=== PATIENT | female | born 1980 | race African-American/Black ===

== ENCOUNTER 2016-10-30 18:46 | Emergency (ER) | payer SELFPAY ==
[2016-10-30 18:54] VITALS: BP 143/83
[2016-10-30] MEDS ORDERED: PSEUDOEPHEDRINE HCL 30 MG TABLET PO ONE (19:31)
[2016-10-30] MEDS ORDERED: IBUPROFEN 800 MG TABLET PO ONE (19:31)
[2016-10-30] MEDS ORDERED: GUAIFENESIN 600 MG TABLET.SA PO ONE (19:31)
--- NOTE | 2016-10-30 19:37 | ER Document Report ---
HPI - HPI Patient complains to provider of: sinus congestion Pain Level: 3 Context: patient is a 35 year old female who presents to the ED complaining of sinus congestion, left facial pain and ear pain, with body aches. She has been taking benadryl and motrin at home. She denies influenza vaccine this year. denies fevers, admits to intermittent chills. has not followed up with primary care regarding this complaint. nonsmoker - REPRODUCTIVE Reproductive: DENIES: : - DERM Skin Color: Normal Past Medical History - Social History Smoking Status: Never Smoker Family History: Reviewed & Not Pertinent, CAD Patient has suicidal ideation: No Patient has homicidal ideation: No Pulmonary Medical History: Reports: Hx Asthma - A CHILD Renal/ Medical History: Denies: Hx Peritoneal Dialysis Past Surgical History: Reports: Hx Gynecologic Surgery - Ovarian cyst removal - Immunizations Hx Diphtheria, Pertussis, Tetanus Vaccination: Yes Vertical Provider Document - CONSTITUTIONAL Agree With Documented VS: Yes Exam Limitations: No Limitations General Appearance: WD/WN, No Apparent Distress Notes: PHYSICAL EXAM GENERAL: Alert, interacts well. HEAD: Normocephalic, atraumatic. EYES: Pupils equal, round, and reactive to light. Extraocular movements intact. ENT: Oral mucosa moist, tongue midline. Uvula midline. Airway patent. No evidence of tonsillar enlargement, peritonsillar abscess, retropharyngeal abscess. NECK: Full range of motion. Supple. Trachea midline. LUNGS: Clear to auscultation bilaterally, no wheezes, rales, or rhonchi. No respiratory distress. HEART: Regular rate and rhythm. No murmurs, gallops, or rubs. ABDOMEN: Soft, nondistended, nontender. No guarding, rebound, or rigidity.. Bowel sounds present in all 4 quadrants. EXTREMITIES: Moves all 4 extremities spontaneously. No edema, radial and dorsalis pedis pulses 2/4 bilaterally. No cyanosis. NEUROLOGICAL: Alert and oriented x4. Normal speech. PSYCH: Normal affect, normal mood. SKIN: Warm, dry, normal turgor. No rashes or lesions noted. - INFECTION CONTROL TRAVEL OUTSIDE OF THE [place] IN LAST 30 DAYS: No - RESPIRATORY O2 Sat by Pulse Oximetry: 100 Course - Re-evaluation Re-evalutation: 10/30/16 19:51 Patient is a 35-year-old female who is hemodynamically stable, no acute distress and afebrile. Does not meet treatment criteria for sinus infection given that she only has 4 days of symptoms without any evidence of purulent drainage or facial pain to palpation, afebrile. Discussed with her over-the- counter management of her symptoms and follow-up with primary care. - Vital Signs Vital signs: Temp Pulse Resp BP Pulse Ox 98.4 F 71 18 143/83 H 100 10/30/16 18:50 10/30/16 18:50 10/30/16 18:50 10/30/16 18:50 10/30/16 18:50 Discharge - Discharge Clinical Impression: Rhinitis Condition: Good Disposition: HOME, SELF-CARE Instructions: Nasal Corticosteroid Inhaler ([facility]), OTC Antihistamines ([facility]) Additional Instructions: Use the Neti-pot as instructed [id number] medicatiosn to use: Flonase nasal spray, mucinex DM (this will include the decongestant medication pseuodophedrine) Referrals: [facility] [NO LOCAL MD] - Follow up as needed YANELIS MONROY MD [NO LOCAL MD] - Follow up as needed
== END 2016-10-30 19:52 | disposition home or self-care (01) ==
LOC: ER 18:46
DX: J31.0 Chronic rhinitis (principal); R51 Headache; M79.1 Myalgia
CPT/HCPCS: 99283

== ENCOUNTER 2018-01-12 22:09 | Emergency (ER) | payer SELFPAY ==
[2018-01-12] MEDS ORDERED: ACETAMINOPHEN 325 MG TABLET PO ONE (23:17)
[2018-01-12] MEDS ORDERED: ONDANSETRON 4 MG TAB.RAPDIS PO ONE (23:18)
--- NOTE | 2018-01-12 23:20 | ER Document Report ---
ED Medical Screen (RME) - General Chief Complaint: Headache Stated Complaint: BLOOD PRESSURE ISSUES Time Seen by Provider: 01/12/18 23:17 Mode of Arrival: Ambulatory Information source: Patient Notes: Patient presents complaining of right-sided headache pain that started yesterday. Patient states headache pain is been off and on though has persisted today. Patient states that she has felt lightheaded since around 7 PM today. Patient states she did check her blood pressure and it was elevated. Patient denies any history of high blood pressure. Patient denies any fever, vomiting or head injury. Patient does complain of nausea. I have greeted and performed a rapid initial assessment of this patient. A comprehensive ED assessment and evaluation of the patient, analysis of test results and completion of the medical decision making process will be conducted by additional ED providers. TRAVEL OUTSIDE OF THE [place] IN LAST 30 DAYS: No - Related Data Allergies/Adverse Reactions: No Known Allergies Allergy (Verified 07/15/16 18:37) Past Medical History Pulmonary Medical History: Reports: Hx Asthma - A CHILD Renal/ Medical History: Denies: Hx Peritoneal Dialysis Past Surgical History: Reports: Hx Gynecologic Surgery - Ovarian cyst removal - Immunizations Hx Diphtheria, Pertussis, Tetanus Vaccination: Yes Physical Exam - Vital signs Vitals: Temp Pulse Resp BP Pulse Ox 98.0 F 52 L 20 160/96 H 99 01/12/18 22:15 01/12/18 22:15 01/12/18 22:15 01/12/18 22:15 01/12/18 22:15 - Neurological Neuro grossly intact: Yes Cognition: Normal Reena Coma Scale Eye Opening: Spontaneous [place] Coma Scale Verbal: Oriented [place] Coma Scale Motor: Obeys Commands Reena Coma Scale Total: 15 Course - Vital Signs Vital signs: Temp Pulse Resp BP Pulse Ox 98.0 F 52 L 20 160/96 H 99 01/12/18 22:15 01/12/18 22:15 01/12/18 22:15 01/12/18 22:15 01/12/18 22:15
[2018-01-13] MEDS ORDERED: NORMAL SALINE 1000 ML 1,000 ML IV ONE (00:24)
[2018-01-13] MEDS ORDERED: METOCLOPRAMIDE HCL INJ/PF 10 MG/2 ML SDV IV ONE (00:25)
[2018-01-13] MEDS ORDERED: DIPHENHYDRAMINE HCL 50 MG/ML VIAL IV ONE (00:25)
[2018-01-13] MEDS ORDERED: DEXAMETHASONE SOD PHOS INJ 10 MG/1 ML VIAL IV ONE (00:25)
--- NOTE | 2018-01-13 00:28 | ER Document Report ---
ED General - General Chief Complaint: Headache Stated Complaint: BLOOD PRESSURE ISSUES Time Seen by Provider: 01/12/18 23:17 Mode of Arrival: Ambulatory Notes: Patient is a 37-year-old female presents with complaint of a headache since yesterday. She says is some intermittent sharp pain it is worse in the right side but also occurs on left side of her head. She says it comes very quickly and last 1 or 2 seconds and goes away. She said along with these intermittent sharp pain she also has a constant dull headache over the top of her head. She did have a little pain to the left side of her neck that just started in the last few hours. No fevers. Some nausea. No vomiting. No diarrhea. She denies previous history of headaches. No blurred vision. No focal weakness or numbness. No recent injuries. She does not take any medications and is otherwise healthy. TRAVEL OUTSIDE OF THE [place] IN LAST 30 DAYS: No - Related Data Allergies/Adverse Reactions: No Known Allergies Allergy (Verified 07/15/16 18:37) Past Medical History - General Information source: Patient - Social History Smoking Status: Never Smoker Frequency of alcohol use: None Drug Abuse: None Family History: Reviewed & Not Pertinent, CAD Pulmonary Medical History: Reports: Hx Asthma - A CHILD Renal/ Medical History: Denies: Hx Peritoneal Dialysis Past Surgical History: Reports: Hx Gynecologic Surgery - Ovarian cyst removal - Immunizations Hx Diphtheria, Pertussis, Tetanus Vaccination: Yes Review of Systems - Review of Systems Notes: My Normal Review Basic REVIEW OF SYSTEMS: CONSTITUTIONAL : Denies fever, chills, or sweats. Denies recent illness. GASTROINTESTINAL: Denies abdominal pain. Denies nausea, vomiting, or diarrhea. GENITOURINARY: Denies difficulty urinating, painful urination, burning, frequency, or blood in urine. SKIN: Denies rash or skin lesions. NEUROLOGICAL: Denies altered mental status or loss of consciousness. Has a headache. Denies weakness or paralysis or loss of use of either side. Denies problems with gait or speech. Denies sensory or motor loss. ALL OTHER SYSTEMS REVIEWED AND NEGATIVE. Physical Exam - Vital signs Vitals: Temp Pulse Resp BP Pulse Ox 98.0 F 52 L 20 160/96 H 99 01/12/18 22:15 01/12/18 22:15 01/12/18 22:15 01/12/18 22:15 01/12/18 22:15 - Notes Notes: General Appearance: Well nourished, alert, cooperative, no acute distress, mild obvious discomfort. Vitals: reviewed, See vital signs table. Head: no swelling or tenderness to the head Eyes: PERRL, EOMI, Conjuctiva clear Mouth: No decreasd moisture Neck: Supple, no neck tenderness, No thyromegaly Lungs: No wheezing, No rales, No rhonci, No accessory muscle use, good air exchange bilaterally. Heart: Normal rate, Regular rythm, No murmur, no rub Extremities: strength 5/5 in all extremities, good pulses in all extremities, no swelling or tenderness in the extremities, no edema. Skin: warm, dry, appropriate color, no rash Neuro: speech clear, oriented x 3, normal affect, responds appropriately to questions. Cranial nerves II through XII are intact. Distal sensation intact patient moves all extremities without any difficulty. Normal coordination of movement of extremities. Course - Re-evaluation Re-evalutation: 01/14/18 06:50 Patient's headache resolved on its own before she received the medications. Patient does not have any pain to palpation of her temporal arteries. She denies any blurred vision. I did talk to her about the possibility of subarachnoid hemorrhage. I think this is less likely being that the headache is very sharp and quick and intermittent however the patient does not typically have headaches and therefore I talked to patient workup for subarachnoid hemorrhage. I talked her length about the difference between CTA and lumbar puncture. I informed her CT is sensitive but it is not 100% sensitive in ruling out a cerebral aneurysm. I informed her that lumbar puncture is closest to 100% ruling out a cerebral aneurysm bleed. Did review the procedure lumbar puncture with the patient she does not want a lumbar puncture and says she would rather do a CTA and understands that this is not sensitive. CT was negative. Patient's pain resolved without any medications. Her blood pressure is improving since her pain is gone. Informed her that she keep a close eye on her blood pressure and keep a log of her blood pressures for next week. She does not follow up with primary care doctor for reevaluation. I encouraged her return to ER immediately if she has recurrent worsening headaches, vomiting, fevers, or feels unwell. Patient agrees with plan will be discharged home. Dictation of this chart was performed using voice recognition software; therefore, there may be some unintended grammatical errors. - Vital Signs Vital signs: Temp Pulse Resp BP Pulse Ox 98.2 F 63 18 125/72 98 01/13/18 04:18 01/13/18 04:18 01/13/18 04:18 01/13/18 04:18 01/13/18 04:18 - Laboratory Result Diagrams: 01/13/18 00:50 01/13/18 00:50 Laboratory results interpreted by me: 01/13/18 00:50 Hgb 11.4 L Hct 34.4 L Discharge - Discharge Clinical Impression: Headache Qualifiers: Headache type: unspecified Headache chronicity pattern: episodic headache Intractability: not intractable Qualified Code(s): R51 - Headache Hypertension Qualifiers: Hypertension type: unspecified Qualified Code(s): I10 - Essential (primary) hypertension Condition: Good Disposition: HOME, SELF-CARE Instructions: Family Physicians / Practices Additional Instructions: Please check your blood pressure once a day for the next week and keep a log. please follow up with a primary care doctor with your log of blood pressures to see if you need to be started on a blood pressure medication and also get reevaluated for your headache. We did a special CT scan to look for evidence of any aneurysms in the brain. CT scan was negative for any aneurysms. As discussed with you, the CT scan is very sensitive in picking up aneurysms but is not 100% sensitive in ruling out aneurysm bleeds. The only test 100% sensitive would be a lumbar puncture. At this time you did not want a lumbar puncture and we do respect your decision. We still want you to have a low threshold to return to ER if you have recurrent headaches that are sudden in onset and very strong in onset, vomiting, fevers, or if you feel that you are worsening in any way. Please take the Reglan with 25 mg of Benadryl if you have a headache. This should help relieve your headache. Prescriptions: Metoclopramide HCl [Reglan 10 mg Tablet] 1 tab PO ASDIR PRN #25 tablet PRN Reason:
[2018-01-13 01:06] LABS: ABSOLUTE BASOPHILS # (AUTO) 0.1 10^3/uL (0.0-0.2); ABSOLUTE EOSINOPHILS # (AUTO) 0.1 10^3/uL (0.0-0.6); ABSOLUTE LYMPHOCYTES (AUTO) 2.1 10^3/uL (0.5-4.7); ABSOLUTE MONOCYTES (AUTO) 0.7 10^3/uL (0.1-1.4); EOSINOPHILS % (AUTO) 1.8 % (0-6); HEMATOCRIT 34.4 % (36.0-47.0); HEMOGLOBIN 11.4 g/dL (12.0-15.5); MEAN CORPUSCULAR HEMOGLOBIN 28.2 pg (27.0-33.4); MEAN CORPUSCULAR HGB CONC 33.2 g/dL (32.0-36.0); MEAN CORPUSCULAR VOLUME 85 fl (80-97); MONOCYTES % (AUTO) 11.4 % (3-13); PLATELET COUNT 164 10^3/uL (150-450); RED BLOOD COUNT 4.05 10^6/uL (3.72-5.28); RED CELL DISTRIBUTION WIDTH 13.2 % (11.5-14.0); SEGMENTED NEUTROPHILS % (AUTO) 50.8 % (42-78); TOTAL CELLS COUNTED % (AUTO) 100 %; WHITE BLOOD COUNT 5.9 10^3/uL (4.0-10.5)
[2018-01-13 01:19] LABS: ANION GAP 9 (5-19); BLOOD UREA NITROGEN 18 mg/dL (7-20); CALCIUM 8.6 mg/dL (8.4-10.2); CARBON DIOXIDE 27 mmol/L (22-30); CHLORIDE 107 mmol/L (98-107); GLUCOSE 101 mg/dL (75-110); POTASSIUM 4.1 mmol/L (3.6-5.0); SODIUM 142.8 mmol/L (137-145)
--- NOTE | 2018-01-13 03:02 | RADIOLOGY REPORT (SQ) ---
EXAM DESCRIPTION: CT HEAD ANGIOGRAPHY WITHOUT THEN WITH IV CONTRAST COMPLETED DATE/TME: 01/13/2018 00:24 CLINICAL HISTORY: 37 years, Female, headache COMPARISON: None available TECHNIQUE: Axial CTA images of the head obtained from the skull base to the skull apex before and after the the uncomplicated intravenous administration of 80 mL Omnipaque 350. 3-D/MIP reformatted images available. Contrast bolus timing is somewhat delayed with the dominant opacification within the venous system however the arterial system remains opacified. All CT scanners at this facility use dose modulation, iterative reconstruction, and/or weight based dosing when appropriate to reduce radiation dose to as low as reasonably achievable (ALARA). [facility]: Dose Right [facility]: CareDose [facility]: Dose Right [facility]: Teradose 4D [facility]: [employer] [facility]: 1164.47 mGy-cm FINDINGS: CT head without: No acute intracranial hemorrhage identified. No mass, mass effect, shift of the midline, abnormal extra-axial fluid collection or CT evidence of acute ischemic change identified. The ventricular system is unremarkable. No acute abnormalities of the supratentorial white matter, basal ganglia, cerebellum, or brainstem. Region of encephalomalacia involving the left cerebellum. The visualized paranasal sinuses and the mastoids are clear. No skull fracture identified. Prior left occipital craniotomy. Visualized orbits and globes are unremarkable. CTA: Anterior circulation: The intracranial internal carotid arteries have normal course and caliber. The internal carotid arteries bifurcate into widely patent A1 and M1 segments of the anterior and middle cerebral arteries, respectively. The anterior communicating artery is patent. No evidence of stenosis/occlusion in the middle or anterior cerebral arteries. No distal vascular territory pruning. No aneurysm identified. Posterior circulation: The intracranial vertebral arteries are patent. These vessels combined to produce a widely patent basilar artery. The basilar artery is widely patent and bifurcates into patent posterior cerebral arteries. The superior cerebellar arteries, AICA's, and PICA's are patent. IMPRESSION: 1. No acute intracranial abnormality identified. 2. No abnormality identified within the intracranial circulation. TECHNICAL DOCUMENTATION: Quality ID # [id number]: Final reports with documentation of one or more dose reduction techniques (e.g., Automated exposure control, adjustment of the mA and/or kV according to patient size, use of iterative reconstruction technique) 2010 [employer]- All Rights Reserved Electronically signed by: Yury Alvarado 01/13/2018 1:32 AM CDT Workstation:
[2018-01-13 04:32] VITALS: BP 125/72
== END 2018-01-13 04:32 | disposition home or self-care (01) ==
LOC: ER 22:09
DX: R51 Headache (principal); I10 Essential (primary) hypertension; R11.0 Nausea; J45.909 Unspecified asthma, uncomplicated
CPT/HCPCS: 36415; 70496; 80048; 84703; 85025; 99284

== ENCOUNTER 2018-09-08 18:02 | Emergency (ER) | payer SELFPAY ==
[2018-09-08 18:17] VITALS: BP 136/81
[2018-09-08] MEDS ORDERED: IBUPROFEN 800 MG TABLET PO ONE (18:32)
[2018-09-08] MEDS ORDERED: CEPHALEXIN 500 MG CAPSULE PO ONE (20:08)
--- NOTE | 2018-09-08 20:12 | ER Document Report ---
HPI - HPI Patient complains to provider of: Right great toe tenderness Time Seen by Provider: 09/08/18 19:36 Onset/Duration: Persistent Quality of pain: Achy Pain Level: 5 Context: Patient presents complaining of right great toe pain for the past 2 days. Patient states area is red and swollen. Associated Symptoms: denies: Fever Exacerbated by: Standing, Movement, Walking Relieved by: Denies Similar symptoms previously: No Recently seen / treated by doctor: No - ROS ROS below otherwise negative: Yes Systems Reviewed and Negative: Yes All other systems reviewed and negative - CONSTITUTIONAL Constitutional: DENIES: Fever, Chills - REPRODUCTIVE Reproductive: DENIES: : - MUSCULOSKELETAL Musculoskeletal: REPORTS: Extremity pain - l big toe, Swelling - DERM Skin Color: Erythema Past Medical History - General Information source: Patient - Social History Smoking Status: Never Smoker Chew tobacco use (# tins/day): No Frequency of alcohol use: None Drug Abuse: None Occupation: [employer] Lives with: Family Family History: Reviewed & Not Pertinent, CAD Patient has suicidal ideation: No Patient has homicidal ideation: No Pulmonary Medical History: Reports: Hx Asthma - A CHILD Renal/ Medical History: Denies: Hx Peritoneal Dialysis Past Surgical History: Reports: Hx Gynecologic Surgery - Ovarian cyst removal - Immunizations Hx Diphtheria, Pertussis, Tetanus Vaccination: Yes Vertical Provider Document - CONSTITUTIONAL Agree With Documented VS: Yes Exam Limitations: No Limitations General Appearance: WD/WN, No Apparent Distress - INFECTION CONTROL TRAVEL OUTSIDE OF THE [place] IN LAST 30 DAYS: No - HEENT HEENT: Atraumatic, Normocephalic - NECK Neck: Normal Inspection - RESPIRATORY Respiratory: Breath Sounds Normal, No Respiratory Distress - CARDIOVASCULAR Cardiovascular: Regular Rate, Regular Rhythm - MUSCULOSKELETAL/EXTREMETIES Musculoskeletal/Extremeties: MAEW, Tender - Tenderness to right great toe along the medial nail margin, Edema - Plus edema right great toe - NEURO Level of Consciousness: Awake, Alert, Appropriate Motor/Sensory: No Motor Deficit - DERM Integumentary: Warm, Dry Notes: Mild erythema to base and medial margin of right great toenail, patient with nail fungus to right great toe Course - Re-evaluation Re-evalutation: 09/08/18 20:09 Offered patient liver function tests and starting antifungal medication to treat her onychomycosis. Patient declined and only would like to have antibiotics to treat the infection to the toe - Vital Signs Vital signs: Temp Pulse Resp BP Pulse Ox 98.7 F 61 14 136/81 H 99 09/08/18 18:16 09/08/18 18:16 09/08/18 18:16 09/08/18 18:16 09/08/18 18:16 Discharge - Discharge Clinical Impression: Paronychia of toe of right foot Condition: Stable Disposition: HOME, SELF-CARE Instructions: Cephalexin ([facility]), Paronychia ([facility]) Additional Instructions: Return immediately for any new or worsening symptoms Followup with your primary care provider, call tomorrow to make a followup appointment Prescriptions: Cephalexin Monohydrate [Keflex 500 mg Capsule] 500 mg PO Q6H 5 Days capsule Naproxen [Naprosyn 250 Nmg Tablet] 1 tab PO BID #14 tablet Forms: Return to Work Referrals: [facility] [Provider Group] - Follow up as needed [facility] [Provider Group] - Follow up as needed
== END 2018-09-08 20:28 | disposition home or self-care (01) ==
LOC: ER 18:02
DX: L03.031 Cellulitis of right toe (principal); M79.674 Pain in right toe(s); J45.909 Unspecified asthma, uncomplicated
CPT/HCPCS: 99283

== ENCOUNTER 2019-05-28 15:01 | Emergency (ER) | payer OTHER ==
[2019-05-28] MEDS ORDERED: METHOCARBAMOL 500 MG TABLET PO ONE (15:17)
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
[2019-05-28 16:00] LABS: ABSOLUTE EOSINOPHILS # (AUTO) 0.1 10^3/uL (0.0-0.6); ABSOLUTE LYMPHOCYTES (AUTO) 1.8 10^3/uL (0.5-4.7); ABSOLUTE MONOCYTES (AUTO) 0.5 10^3/uL (0.1-1.4); BASOPHILS % (AUTO) 0.6 % (0-2); EOSINOPHILS % (AUTO) 0.8 % (0-6); HEMATOCRIT 38.1 % (36.0-47.0); HEMOGLOBIN 12.6 g/dL (12.0-15.5); MEAN CORPUSCULAR HEMOGLOBIN 28.1 pg (27.0-33.4); MEAN CORPUSCULAR VOLUME 85 fl (80-97); MONOCYTES % (AUTO) 7.8 % (3-13); PLATELET COUNT 195 10^3/uL (150-450); RED BLOOD COUNT 4.47 10^6/uL (3.72-5.28); RED CELL DISTRIBUTION WIDTH 13.3 % (11.5-14.0); SEGMENTED NEUTROPHILS % (AUTO) 62.8 % (42-78); TOTAL CELLS COUNTED % (AUTO) 100 %; WHITE BLOOD COUNT 6.3 10^3/uL (4.0-10.5)
[2019-05-28 16:18] LABS: ANION GAP 9 (5-19); BLOOD UREA NITROGEN 10 mg/dL (7-20); CALCIUM 9.2 mg/dL (8.4-10.2); CARBON DIOXIDE 29 mmol/L (22-30); CHLORIDE 102 mmol/L (98-107); GLUCOSE 83 mg/dL (75-110); POTASSIUM 3.9 mmol/L (3.6-5.0)
[2019-05-28 16:56] LABS: APPEARANCE,URINE SLIGHTLY-CLOUDY; BILIRUBIN,URINE NEGATIVE (NEGATIVE); COLOR,URINE YELLOW; GLUCOSE, URINE NEGATIVE (NEGATIVE); KETONES,URINE NEGATIVE (NEGATIVE); PROTEIN,URINE NEGATIVE (NEGATIVE); URINE SPECIFIC GRAVITY 1.021
[2019-05-28 19:25] VITALS: BP 142/84
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
== END 2019-05-28 19:26 | disposition home or self-care (01) ==
LOC: ER 15:01
DX: S39.012A Strain of muscle, fascia and tendon of lower back, initial encounter (principal); S29.012A Strain of muscle and tendon of back wall of thorax, initial encounter; V49.50XA Passenger injured in collision with unspecified motor vehicles in traffic accident, initial encounter
CPT/HCPCS: 36415; 80048; 81001; 84703; 85025; 87086; 87088; 99283

== ENCOUNTER 2020-04-02 16:59 | Emergency (ER) | payer OTHER ==
[2020-04-02] MEDS ORDERED: ACETAMINOPHEN 325 MG TABLET PO ONE (17:34)
--- NOTE | 2020-04-02 17:36 | ER Document Report ---
ED Medical Screen (RME) - General Chief Complaint: OB Problem (>20wk) Stated Complaint: VAGINAL BLEEDING Time Seen by Provider: 04/02/20 17:29 Notes: Patient is a 39-year-old female, G7, P4 who presents emergency department with a chief complaint of vaginal bleeding. Patient states that she started to have some abdominal cramping. Patient states that she is about 9 weeks . States that she had blood on the toilet paper when she wiped. Denies any clots. Exam: Tender mid lower abdomen. I have greeted and performed a rapid initial assessment of this patient. A comprehensive ED assessment and evaluation of the patient, analysis of test results and completion of medical decision making process will be conducted by an additional ED providers. TRAVEL OUTSIDE OF THE [place] IN LAST 30 DAYS: No - Related Data Allergies/Adverse Reactions: No Known Allergies Allergy (Verified 04/02/20 17:32) Home Medications: tylenol. Past Medical History - Social History Chew tobacco use (# tins/day): No Frequency of alcohol use: None Drug Abuse: None Pulmonary Medical History: Reports: Hx Asthma - A CHILD Renal/ Medical History: Denies: Hx Peritoneal Dialysis Past Surgical History: Reports: Hx Gynecologic Surgery - Ovarian cyst removal - Immunizations Hx Diphtheria, Pertussis, Tetanus Vaccination: Yes Physical Exam - Vital signs Vitals: Temp Pulse Resp BP Pulse Ox 98.5 F 63 16 137/68 H 100 04/02/20 17:12 04/02/20 17:12 04/02/20 17:12 04/02/20 17:12 04/02/20 17:12 Course - Vital Signs Vital signs: Temp Pulse Resp BP Pulse Ox 98.5 F 63 16 137/68 H 100 04/02/20 17:30 04/02/20 17:12 04/02/20 17:12 04/02/20 17:12 04/02/20 17:12
[2020-04-02 18:14] LABS: ABSOLUTE BASOPHILS # (AUTO) 0.1 10^3/uL (0.0-0.2); ABSOLUTE EOSINOPHILS # (AUTO) 0.1 10^3/uL (0.0-0.6); ABSOLUTE LYMPHOCYTES (AUTO) 1.9 10^3/uL (0.5-4.7); ABSOLUTE MONOCYTES (AUTO) 0.8 10^3/uL (0.1-1.4); ABSOLUTE NEUT (AUTO) 4.5 10^3/uL (1.7-8.2); BASOPHILS % (AUTO) 0.7 % (0-2); EOSINOPHILS % (AUTO) 1.4 % (0-6); HEMATOCRIT 33.1 % (36.0-47.0); HEMOGLOBIN 11.5 g/dL (12.0-15.5); MEAN CORPUSCULAR HEMOGLOBIN 29.2 pg (27.0-33.4); MEAN CORPUSCULAR HGB CONC 34.9 g/dL (32.0-36.0); MEAN CORPUSCULAR VOLUME 84 fl (80-97); MONOCYTES % (AUTO) 10.3 % (3-13); PLATELET COUNT 168 10^3/uL (150-450); RED BLOOD COUNT 3.96 10^6/uL (3.72-5.28); RED CELL DISTRIBUTION WIDTH 13.8 % (11.5-14.0); SEGMENTED NEUTROPHILS % (AUTO) 61.6 % (42-78); TOTAL CELLS COUNTED % (AUTO) 100 %; WHITE BLOOD COUNT 7.3 10^3/uL (4.0-10.5)
[2020-04-02 18:24] LABS: ALKALINE PHOSPHATASE 52 U/L (38-126); ANION GAP 7 (5-19); ASPARTATE AMINO TRANSFERASE 28 U/L (14-36); BILIRUBIN,DIRECT 0.3 mg/dL (0.0-0.4); BILIRUBIN,TOTAL 0.4 mg/dL (0.2-1.3); BLOOD UREA NITROGEN 8 mg/dL (7-20); CALCIUM 9.3 mg/dL (8.4-10.2); CARBON DIOXIDE 28 mmol/L (22-30); CHLORIDE 102 mmol/L (98-107); GLUCOSE 82 mg/dL (75-110); POTASSIUM 3.9 mmol/L (3.6-5.0)
--- NOTE | 2020-04-02 18:57 | RADIOLOGY REPORT (SQ) ---
EXAM DESCRIPTION: U/S 1TRIMESTER/1GEST W/DOPPLER IMAGES COMPLETED DATE/TIME: 04/02/2020 6:38 pm REASON FOR STUDY: 9 weeks; vaginal bleeding COMPARISON: None. TECHNIQUE: Transabdominal static and realtime grayscale images acquired of the pelvis. Additional se lected spectral and color Doppler images recorded. All images stored on PACs. bHCG: Pending. CLINICAL DATES: LMP 01/25/2020 9 weeks 5 days LIMITATIONS: None. FINDINGS: FETUS: Single Living intrauterine . ULTRASOUND EGA: 5 weeks 6 days ULTRASOUND GREG: 12/02/2020 EFW: Not applicable less than 20 weeks. CRL: 0.3 cm FHR: 116 beats per minute. SURVEY: Too early to assess. AMNIOTIC FLUID: Adequate amount. PLACENTA: Not yet developed due to early gestation. SUBCHORIONIC BLEED: No SIZE OF BLEED: Not applicable. UTERUS: No masses. No anomalies. CERVICAL LENGTH: 1.8 cm. Closed. RIGHT ADNEXA: Normal ovary with normal vascular flow. No adnexal free fluid. No adnexal masses. LEFT ADNEXA: Normal ovary with normal vascular flow. No adnexal free fluid. No adnexal masses. FREE FLUID: None. OTHER: No other significant finding. IMPRESSION: LIVING INTRAUTERINE . EGA 5 weeks 6 days. Trimester of : First trimester - 0 to 13 weeks. TECHNICAL DOCUMENTATION: JOB ID: [id number] 2010 [employer]- All Rights Reserved rev-12/03 Reading location - IP/workstation name: [email or web address]
[2020-04-02 19:32] LABS: APPEARANCE,URINE CLEAR; BILIRUBIN,URINE NEGATIVE (NEGATIVE); COLOR,URINE YELLOW; GLUCOSE, URINE NEGATIVE (NEGATIVE); KETONES,URINE NEGATIVE (NEGATIVE); LEUKOCYTE ESTERASE,URINE NEGATIVE (NEGATIVE); NITRITE,URINE NEGATIVE (NEGATIVE); PROTEIN,URINE NEGATIVE (NEGATIVE); URINE SPECIFIC GRAVITY 1.012; UROBILINOGEN,URINE NEGATIVE mg/dL (<2.0)
--- NOTE | 2020-04-02 21:23 | ER Document Report ---
ED GI/ - General Chief Complaint: OB Problem (>20wk) Stated Complaint: VAGINAL BLEEDING Time Seen by Provider: 04/02/20 17:29 Primary Care Provider: [facility] [Provider Group] - Follow up as needed Mode of Arrival: Ambulatory Information source: Patient Notes: VLADIMIR HPI: Patient is a 39-year-old female, G7, P4 who presents emergency department with a chief complaint of vaginal bleeding. Patient states that she started to have some abdominal cramping. Patient states that she is about 9 weeks . States that she had blood on the toilet paper when she wiped. Denies any clots. Patient denies any recent fever, chills, nausea, vomiting or diarrhea. TRAVEL OUTSIDE OF THE [place] IN LAST 30 DAYS: No - Related Data Allergies/Adverse Reactions: No Known Allergies Allergy (Verified 04/02/20 17:32) Home Medications: tylenol. Past Medical History - General Information source: Patient - Social History Smoking Status: Never Smoker Chew tobacco use (# tins/day): No Frequency of alcohol use: None Drug Abuse: None Family History: Reviewed & Not Pertinent, CAD Patient has homicidal ideation: No Pulmonary Medical History: Reports: Hx Asthma - A CHILD Renal/ Medical History: Denies: Hx Peritoneal Dialysis Past Surgical History: Reports: Hx Gynecologic Surgery - Ovarian cyst removal - Immunizations Hx Diphtheria, Pertussis, Tetanus Vaccination: Yes Review of Systems - Review of Systems Gastrointestinal: Abdominal pain - low abd cramping Female Genitourinary: Vaginal bleeding - spotting on toilet paper -: Yes All other systems reviewed and negative Physical Exam - Vital signs Vitals: Temp Pulse Resp BP Pulse Ox 98.5 F 63 16 137/68 H 100 04/02/20 17:12 04/02/20 17:12 04/02/20 17:12 04/02/20 17:12 04/02/20 17:12 - Notes Notes: PHYSICAL EXAMINATION: GENERAL: Well-appearing, well-nourished and in no acute distress. HEAD: Atraumatic, normocephalic. EYES: Pupils equal round and reactive to light, extraocular movements intact, conjunctiva are normal. ENT: Nares patent, oropharynx clear without exudates. Moist mucous membranes. NECK: Normal range of motion, supple without lymphadenopathy LUNGS: Breath sounds clear to auscultation bilaterally and equal. No wheezes rales or rhonchi. HEART: Regular rate and rhythm without murmurs ABDOMEN: Soft, mild tenderness to the lower abdomen/suprapubic area, nondistended abdomen. No guarding, no rebound. No masses appreciated. Female : deferred Musculoskeletal: Normal range of motion, no pitting or edema. No cyanosis. NEUROLOGICAL: Cranial nerves grossly intact. Normal speech, normal gait. Normal sensory, motor exams PSYCH: Normal mood, normal affect. SKIN: Warm, Dry, normal turgor, no rashes or lesions noted. Course - Re-evaluation Re-evalutation: Laboratory 04/02/20 04/02/20 04/02/20 17:53 17:53 17:53 WBC 7.3 RBC 3.96 Hgb 11.5 L Hct 33.1 L MCV 84 MCH 29.2 MCHC 34.9 RDW 13.8 Plt Count 168 Lymph % (Auto) 26.0 [place] % (Auto) 10.3 Eos % (Auto) 1.4 Baso % (Auto) 0.7 Absolute Neuts (auto) 4.5 Absolute Lymphs (auto) 1.9 Absolute Monos (auto) 0.8 Absolute Eos (auto) 0.1 Absolute Basos (auto) 0.1 Seg Neutrophils % 61.6 Sodium 136.7 L Potassium 3.9 Chloride 102 Carbon Dioxide 28 Anion Gap 7 BUN 8 Creatinine 0.85 Est GFR ( Amer) > 60 Est GFR (MDRD) Non-Af > 60 Glucose 82 Calcium 9.3 Total Bilirubin 0.4 Direct Bilirubin 0.3 Neonat Total Bilirubin Not Reportable Neonat Direct Bilirubin Not Reportable Neonat Indirect Bili Not Reportable AST 28 ALT 25 Alkaline Phosphatase 52 Total Protein 7.0 Albumin 4.0 Lipase 25.4 Beta HCG, Quant 93006.00 H Total Beta HCG POSITIVE Urine Color Urine Appearance Urine pH Ur Specific [place] Urine Protein Urine Glucose (UA) Urine Ketones Urine Blood Urine Nitrite Urine Bilirubin Urine Urobilinogen Ur Leukocyte Esterase Urine WBC (Auto) Urine RBC (Auto) Squamous Epi Cells Auto Urine Mucus (Auto) Urine Ascorbic Acid Blood Type B POSITIVE Rhogam Indicated RHOGAM NOT INDICATED 04/02/20 19:00 WBC RBC Hgb Hct MCV MCH MCHC RDW Plt Count Lymph % (Auto) [place] % (Auto) Eos % (Auto) Baso % (Auto) Absolute Neuts (auto) Absolute Lymphs (auto) Absolute Monos (auto) Absolute Eos (auto) Absolute Basos (auto) Seg Neutrophils % Sodium Potassium Chloride Carbon Dioxide Anion Gap BUN Creatinine Est GFR ( Amer) Est GFR (MDRD) Non-Af Glucose Calcium Total Bilirubin Direct Bilirubin Neonat Total Bilirubin Neonat Direct Bilirubin Neonat Indirect Bili AST ALT Alkaline Phosphatase Total Protein Albumin Lipase Beta HCG, Quant Total Beta HCG Urine Color YELLOW Urine Appearance CLEAR Urine pH 6.0 Ur Specific [place] 1.012 Urine Protein NEGATIVE Urine Glucose (UA) NEGATIVE Urine Ketones NEGATIVE Urine Blood NEGATIVE Urine Nitrite NEGATIVE Urine Bilirubin NEGATIVE Urine Urobilinogen NEGATIVE Ur Leukocyte Esterase NEGATIVE Urine WBC (Auto) 0 Urine RBC (Auto) 0 Squamous Epi Cells Auto 1 Urine Mucus (Auto) RARE Urine Ascorbic Acid NEGATIVE Blood Type Rhogam Indicated Obstetrics Ultrasound 04/02/20 18:09 IMPRESSION: LIVING INTRAUTERINE . EGA 5 weeks 6 days. Trimester of : First trimester - 0 to 13 weeks. Patient appears well, nontoxic, denies any current vaginal bleeding. She reports that she had one episode earlier today where she had light blood on the toilet paper. Ultrasound findings as outlined above. Patient has a scheduled ultrasound with [facility] coming up on Wednesday which is 6 days from now. ED return precautions were discussed, patient verbalized understanding and agreement with same. - Vital Signs Vital signs: Temp Pulse Resp BP Pulse Ox 97.9 F 70 16 148/79 H 100 04/02/20 21:33 04/02/20 21:33 04/02/20 21:33 04/02/20 21:33 04/02/20 21:33 - Laboratory Result Diagrams: 04/02/20 17:53 04/02/20 17:53 Laboratory results interpreted by me: 04/02/20 04/02/20 17:53 17:53 Hgb 11.5 L Hct 33.1 L Sodium 136.7 L Beta HCG, Quant 93461.00 H Discharge - Discharge Clinical Impression: Vaginal bleeding affecting early Condition: Stable Disposition: HOME, SELF-CARE Additional Instructions: The ultrasound today showed no acute abnormalities. Your blood work was normal. Please keep the appointment you have for Wednesday at [facility] for your ultrasound. Bring the copy of the ultrasound that I sent you home with. Please return to the emergency department if you develop worsening vaginal bleeding that is bleeding through more than 1 pad per hour for 3 to 4 hours consecutively. Your blood type is B+ Referrals: [facility] [Provider Group] - Follow up as needed
[2020-04-02 21:36] VITALS: BP 148/79
== END 2020-04-02 21:36 | disposition home or self-care (01) ==
LOC: ER 16:59
DX: O20.9 Hemorrhage in early pregnancy, unspecified (principal); O26.899 Other specified pregnancy related conditions, unspecified trimester; R10.30 Lower abdominal pain, unspecified; R10.819 Abdominal tenderness, unspecified site; Z3A.00 Weeks of gestation of pregnancy not specified; Z79.899 Other long term (current) drug therapy
CPT/HCPCS: 36415; 76801; 80053; 81001; 83690; 84702; 85025; 86900; 86901; 93976; 99285

== ENCOUNTER → 2020-06-12 | Outpatient (CLI) | payer OTHER, MEDICAID ==
--- NOTE | 2020-06-12 13:03 | RADIOLOGY REPORT (SQ) ---
EXAM DESCRIPTION: VENOUS UNILATERAL LOWER IMAGES COMPLETED DATE/TIME: 06/12/2020 12:53 pm REASON FOR STUDY: RLE PAIN M79.604 PAIN IN RIGHT LEG COMPARISON: None. TECHNIQUE: Dynamic and static goodwin scale and color images acquired of the right leg venous system. S elected spectral images acquired with additional compression and augmentation maneuvers. The contrala teral common femoral vein and saphenofemoral junction were also imaged. Images stored on PACS. LIMITATIONS: None. FINDINGS: COMMON FEMORAL: Normal phasicity, compression and augmentation. No visualized echogenic ma terial on goodwin scale. No defects on color images. FEMORAL: Normal compression and augmentation. No visualized echogenic material on goodwin scale. No defe cts on color images. POPLITEAL: Normal compression, augmentation. No visualized echogenic material on goodwin scale. No defec ts on color images. CALF VESSELS: Normal compression, augmentation. No visualized echogenic material on goodwin scale. No de fects on color images. GSV and SSV: Normal compression, augmentation. No visualized echogenic material on goodwin scale. No def ects on color images. ANY DEEP VENOUS INSUFFICIENCY: Not evaluated. ANY EVIDENCE OF POPLITEAL CYST: 2.6 x 1.0 x 2.0 cm collection within the popliteal fossa most compati ble with popliteal fossa cyst. OTHER: No other significant finding. CONTRALATERAL COMMON FEMORAL VEIN AND SAPHENOFEMORAL JUNCTION: Normal phasicity, compression and augmentation. No visualized echogenic material on goodwin scale. No de fects on color images. IMPRESSION: NO EVIDENCE OF DVT OR SVT IN THE RIGHT LEG. 2.6 X 1.0 X 2.0 CM POPLITEAL FOSSA CYST. TECHNICAL DOCUMENTATION: JOB ID: [id number] 2010 [employer]- All Rights Reserved Reading location - IP/workstation name: [email or web address]
== END ==
LOC: SP 10:31
PROVIDERS: ATTEND Obstetrics & Gynecology
DX: M79.604 Pain in right leg (principal)
CPT/HCPCS: 93971

== ENCOUNTER 2020-08-02 15:24 | Outpatient (CLI) | payer OTHER, MEDICAID ==
[2020-08-02] MEDS ORDERED: BUTALB/ACETAMINOPHEN/CAFFEINE 1 TAB EACH PO ONE (16:02)
[2020-08-02] MEDS ORDERED: BUTALB/ACETAMINOPHEN/CAFFEINE 1 TAB EACH ONE (16:05)
[2020-08-02] MEDS ORDERED: RINGERS SOLUTION,LACTATED 1,000 ML IV PRN (16:22)
[2020-08-02 16:24] LABS: APPEARANCE,URINE SLIGHTLY-CLOUDY; BILIRUBIN,URINE NEGATIVE (NEGATIVE); COLOR,URINE YELLOW; GLUCOSE, URINE NEGATIVE (NEGATIVE); KETONES,URINE NEGATIVE (NEGATIVE); LEUKOCYTE ESTERASE,URINE NEGATIVE (NEGATIVE); NITRITE,URINE NEGATIVE (NEGATIVE); PROTEIN,URINE 30 mg/dL (NEGATIVE); URINE SPECIFIC GRAVITY 1.028
[2020-08-02] MEDS ORDERED: LABETALOL HCL INJ 20 MG/4 ML DISP.SYRIN IV ONE ×5 (16:24→17:14)
--- NOTE | 2020-08-02 16:41 | PDOC PROGRESS REPORT ---
Subjective Date:: 08/02/20 - at 23.2 weeks, sent over from the office w/ complaints of a headache. Hx CHTN, pt did not take her 2pm dose of Propanalol prior to going to [facility] appointment. Hx of marginal placental previa this noted on anatomy u/s. +GBS in urine Subjective:: headache Reason For Visit: Pre-eclampsia work up Physical Exam - Physical Exam Vital Signs: Intake & Output 08/01/20 08/02/20 08/03/20 06:59 06:59 06:59 Weight 94.4 kg - Obstetrical Exam Tender: No - abdoman soft, +FM, Assessment & Plan - Diagnosis (1) 23 weeks gestation of Is this a current diagnosis for this admission?: Yes (2) Chronic hypertension during , antepartum Is this a current diagnosis for this admission?: Yes (3) Marginal placenta previa Is this a current diagnosis for this admission?: Yes - Time Time Spent with patient: Less than 15 minutes Anticipated discharge: Home Anticipated DC Timeframe: Other - this evening - Plan Summary Plan Summary: Discussed pt w/ Dr Álvarez PLan: Pre-eclampsia labwork IV labetalol 20 mg IV for elevated BP per protocal Propanalol 20 mg PO as scheduled Fioricet for headache If BP improves and headache resolves, will most likely d/c home and follow up as scheduled at [facility]. Consider starting pt on Procardia XL
[2020-08-02 16:43] LABS: URINE PROTEIN 7.2 mg/dL (<12)
[2020-08-02 16:45] LABS: URINE AMPHETAMINES SCREEN NEGATIVE; URINE BENZODIAZEPINES SCREEN NEGATIVE; URINE COCAINE SCREEN NEGATIVE; URINE MARIJUANA (THC) SCREEN NEGATIVE; URINE METHADONE SCREEN NEGATIVE; URINE PHENCYCLIDINE SCREEN NEGATIVE
[2020-08-02 16:49] LABS: URINE BARBITURATES SCREEN UNCONFIRMED POSITIVE
[2020-08-02 16:55] LABS: URINE CREATININE 355.9 mg/dL (15-278)
[2020-08-02] MEDS ORDERED: PROPRANOLOL HCL 20 MG TABLET PO ONE (17:00)
[2020-08-02] MEDS ORDERED: PROMETHAZINE HCL INJ 25 MG/1 ML VIAL ONE (17:13)
[2020-08-02 17:20] LABS: ABSOLUTE EOSINOPHILS # (AUTO) 0.1 10^3/uL (0.0-0.6); ABSOLUTE LYMPHOCYTES (AUTO) 1.7 10^3/uL (0.5-4.7); ABSOLUTE MONOCYTES (AUTO) 0.9 10^3/uL (0.1-1.4); ABSOLUTE NEUT (AUTO) 5.9 10^3/uL (1.7-8.2); BASOPHILS % (AUTO) 0.3 % (0-2); EOSINOPHILS % (AUTO) 0.8 % (0-6); HEMATOCRIT 31.3 % (36.0-47.0); HEMOGLOBIN 10.8 g/dL (12.0-15.5); LYMPHOCYTES % (AUTO) 20.1 % (13-45); MEAN CORPUSCULAR HEMOGLOBIN 29.3 pg (27.0-33.4); MEAN CORPUSCULAR HGB CONC 34.5 g/dL (32.0-36.0); MEAN CORPUSCULAR VOLUME 85 fl (80-97); MONOCYTES % (AUTO) 10.7 % (3-13); PLATELET COUNT 145 10^3/uL (150-450); RED BLOOD COUNT 3.69 10^6/uL (3.72-5.28); RED CELL DISTRIBUTION WIDTH 13.8 % (11.5-14.0); SEGMENTED NEUTROPHILS % (AUTO) 68.1 % (42-78); TOTAL CELLS COUNTED % (AUTO) 100 %; WHITE BLOOD COUNT 8.7 10^3/uL (4.0-10.5)
[2020-08-02] MEDS ORDERED: PROMETHAZINE HCL INJ 25 MG/1 ML VIAL IV ONE (17:24)
[2020-08-02 17:37] LABS: ALKALINE PHOSPHATASE 82 U/L (38-126); ANION GAP 5 (5-19); ASPARTATE AMINO TRANSFERASE 30 U/L (14-36); BILIRUBIN,DIRECT 0.1 mg/dL (0.0-0.4); BILIRUBIN,TOTAL 0.4 mg/dL (0.2-1.3); BLOOD UREA NITROGEN 9 mg/dL (7-20); CALCIUM 8.5 mg/dL (8.4-10.2); CARBON DIOXIDE 24 mmol/L (22-30); CHLORIDE 107 mmol/L (98-107); GLUCOSE 81 mg/dL (75-110); POTASSIUM 4.1 mmol/L (3.6-5.0); URIC ACID 3.8 mg/dL (2.5-7.0)
[2020-08-02] MEDS ORDERED: NIFEDIPINE 10 MG CAPSULE ONE (18:04)
[2020-08-02] MEDS ORDERED: NIFEDIPINE 10 MG CAPSULE PO ONE (18:06)
--- NOTE | 2020-08-02 21:07 | RADIOLOGY REPORT (SQ) ---
INDICATION: severe SALVADOR x 2 days. COMPARISON: None CORRELATION: None TECHNIQUE: Noncontrast spiral axial CT images were obtained from the skull base to vertex. This exam was performed according to our departmental dose-optimization program, which includes automated exposure control, adjustment of the mA and/or kV according to patient size and/or use of iterative reconstruction techniques. FINDINGS: There is no evidence of acute intracranial hemorrhage, midline shift, mass effect or mass lesion. He-white differentiation is normal. There is no evidence of acute large territory infarct. Ventricles and extracerebral spaces are within normal limits, for age. The visualized paranasal sinuses are grossly clear. The orbits and eyeballs are unremarkable. The mastoid air cells are clear. Skull base and calvarium appear intact. IMPRESSION: No acute intracranial process is identified. The cause of the patient's headache is not identified on this examination.
[2020-08-02] MEDS ORDERED: ACETAMINOPHEN 325 MG TABLET PO ONE (21:18)
[2020-08-02] MEDS ORDERED: ACETAMINOPHEN 325 MG TABLET ONE (21:22)
== END 2020-08-02 22:11 | disposition home or self-care (01) ==
LOC: LC 15:24
PROVIDERS: ATTEND Obstetrics & Gynecology
DX: O44.22 Partial placenta previa NOS or without hemorrhage, second trimester (principal); O10.912 Unspecified pre-existing hypertension complicating pregnancy, second trimester; O09.522 Supervision of elderly multigravida, second trimester; R51.9 Headache, unspecified; Z3A.23 23 weeks gestation of pregnancy
CPT/HCPCS: 59899; 36415; 83615; 84156; 84550; 82570; 85025; 80053; 81001; 80307; 70450; J3490 ×4; J2550

== ENCOUNTER 2020-08-09 09:23 | Outpatient (CLI) | payer OTHER, MEDICAID ==
[2020-08-09 09:53] LABS: ABSOLUTE EOSINOPHILS # (AUTO) 0.1 10^3/uL (0.0-0.6); ABSOLUTE LYMPHOCYTES (AUTO) 1.8 10^3/uL (0.5-4.7); ABSOLUTE MONOCYTES (AUTO) 0.8 10^3/uL (0.1-1.4); ABSOLUTE NEUT (AUTO) 6.3 10^3/uL (1.7-8.2); BASOPHILS % (AUTO) 0.3 % (0-2); HEMATOCRIT 32.5 % (36.0-47.0); LYMPHOCYTES % (AUTO) 20.1 % (13-45); MEAN CORPUSCULAR HEMOGLOBIN 28.8 pg (27.0-33.4); MEAN CORPUSCULAR VOLUME 85 fl (80-97); MONOCYTES % (AUTO) 8.6 % (3-13); PLATELET COUNT 130 10^3/uL (150-450); RED BLOOD COUNT 3.83 10^6/uL (3.72-5.28); TOTAL CELLS COUNTED % (AUTO) 100 %
[2020-08-09] MEDS ORDERED: LABETALOL HCL INJ 20 MG/4 ML DISP.SYRIN IV ONE ×2 (09:55→09:56)
[2020-08-09] MEDS ORDERED: LABETALOL HCL 200 MG TABLET PO SCH (10:00)
[2020-08-09] MEDS ORDERED: LABETALOL HCL 200 MG TABLET ONE (10:11)
[2020-08-09 10:18] LABS: ALBUMIN 2.9 g/dL (3.5-5.0); ALKALINE PHOSPHATASE 86 U/L (38-126); ASPARTATE AMINO TRANSFERASE 39 U/L (14-36); BILIRUBIN,DIRECT 0.1 mg/dL (0.0-0.4); BILIRUBIN,TOTAL 0.5 mg/dL (0.2-1.3); BLOOD UREA NITROGEN 12 mg/dL (7-20); CALCIUM 8.6 mg/dL (8.4-10.2); GLUCOSE 98 mg/dL (75-110); POTASSIUM 4.3 mmol/L (3.6-5.0); TOTAL PROTEIN 5.9 g/dL (6.3-8.2)
[2020-08-09 10:23] LABS: CARBON DIOXIDE 22 mmol/L (22-30); CHLORIDE 107 mmol/L (98-107)
[2020-08-09 10:34] LABS: ANION GAP 4 (5-19)
[2020-08-09] MEDS ORDERED: ACETAMINOPHEN WITH CODEINE #3 TABLET PO ONE (10:55)
[2020-08-09] MEDS ORDERED: ACETAMINOPHEN WITH CODEINE #3 TABLET ONE (10:59)
[2020-08-09] MEDS ORDERED: CLONIDINE HCL 0.1 MG TABLET PO ONE ×2 (11:00→14:26)
[2020-08-09 11:23] LABS: 24 HOUR URINE PROTEIN RESULT 545 mg/day (42-225); URINE PROTEIN 35.4 mg/dL (<12)
[2020-08-09] MEDS ORDERED: BETAMET ACET/BETAMET NA INJ 6 MG/1 ML ONE (13:44)
[2020-08-09] MEDS ORDERED: BETAMET ACET/BETAMET NA INJ 6 MG/1 ML IM SCH (14:05)
[2020-08-09] MEDS ORDERED: MAGNESIUM SULFATE 20 GM/500 ML RTUINJ IV ONE (15:26)
[2020-08-09] MEDS ORDERED: MAGNESIUM SULFATE 4 GM/100 ML RTUPB IV ONE ×3 (15:26→15:32)
[2020-08-09] MEDS ORDERED: MAGNESIUM SULFATE 20 GM/500 ML RTUINJ IV PRN (15:28)
[2020-08-09 15:47] LABS: ABSOLUTE LYMPHOCYTES (AUTO) 1.5 10^3/uL (0.5-4.7); ABSOLUTE MONOCYTES (AUTO) 0.4 10^3/uL (0.1-1.4); ABSOLUTE NEUT (AUTO) 6.4 10^3/uL (1.7-8.2); BASOPHILS % (AUTO) 0.3 % (0-2); EOSINOPHILS % (AUTO) 0.6 % (0-6); HEMATOCRIT 32.1 % (36.0-47.0); LYMPHOCYTES % (AUTO) 17.8 % (13-45); MEAN CORPUSCULAR HEMOGLOBIN 28.9 pg (27.0-33.4); MEAN CORPUSCULAR HGB CONC 34.4 g/dL (32.0-36.0); MEAN CORPUSCULAR VOLUME 84 fl (80-97); MONOCYTES % (AUTO) 4.7 % (3-13); PLATELET COUNT 128 10^3/uL (150-450); RED BLOOD COUNT 3.82 10^6/uL (3.72-5.28); RED CELL DISTRIBUTION WIDTH 14.1 % (11.5-14.0); SEGMENTED NEUTROPHILS % (AUTO) 76.6 % (42-78); TOTAL CELLS COUNTED % (AUTO) 100 %; WHITE BLOOD COUNT 8.3 10^3/uL (4.0-10.5)
[2020-08-09 16:06] LABS: ALBUMIN 3.1 g/dL (3.5-5.0); ALKALINE PHOSPHATASE 89 U/L (38-126); ASPARTATE AMINO TRANSFERASE 38 U/L (14-36); BILIRUBIN,DIRECT 0.1 mg/dL (0.0-0.4); BILIRUBIN,TOTAL 0.4 mg/dL (0.2-1.3); BLOOD UREA NITROGEN 13 mg/dL (7-20); CALCIUM 8.6 mg/dL (8.4-10.2); CARBON DIOXIDE 24 mmol/L (22-30); CHLORIDE 107 mmol/L (98-107); GLUCOSE 118 mg/dL (75-110); POTASSIUM 3.9 mmol/L (3.6-5.0); TOTAL PROTEIN 6.1 g/dL (6.3-8.2); URIC ACID 4.4 mg/dL (2.5-7.0)
[2020-08-09 16:07] LABS: ANION GAP 4 (5-19)
--- NOTE | 2020-08-09 16:14 | Admission Physical ---
Datetime Report Generated by CPN: 08/09/2020 16:13 CURRENT ADMISSION Hx Assessment: The History has been Reviewed and is Current Chief Complaint: Sent from OB Office for Evaluation and Treatment - Please Specify Chief Complaint Other: 39 yo at 24.2 wks with severe preeclampsia diagnosed by blood pressures > 160 mm HG systolic and 24 urine protein of 545 She currently is having headaches which are improved with tylenol #3 but not resolved. complicated by AMA, history of headaches over last year and is seen my [facility] in [place] for this. CT Head 1 week ago negative. MRI has been done: results pending. Indication for Induction: PreEclampsia Admit Impression : , Intrauterine ; Medical Complication Admit Impression- Other: No chest pain, shortness of breath, RUQ pain, nausea, vomiting or vision changes. Good movement NO Loss of fluid or vaginal bleeding. Admit Plan: Admit to Unit; Observation/Evaluation Admit Plan- Other: Severe range blood pressures. Treated in OB triage with Labetolol 20mg IV x1 and Labetolol 300mg BID PO started. Patient is already on Procardia 30mg BID. Last dose 9am today . Hydralazine on back order and not available. Continued severe range blood pressures in triage and pulse was 58-61 bpm so Clonidine 0.1 mg given PO x1 . Mag sulfate 4 gm bolus and then continued IV drip of 2 gms /hr initiated ALLERGIES Medication Allergies: No Known Allergies (08/09/2020) OBSTETRICAL HISTORY EDC: 11/27/2020 00:00 : 7 Para: 4 Term: 4 : 0 SAB: 1 IAB: 1 Ectopic: 0 Livin Cesareans: 0 VBACs: 0 Multiple Births: 0 PHYSICAL EXAM General: Normal HEENT: Normal Neurologic: Normal Thyroid: Normal Heart: Normal Lungs: Normal Breast: Normal Back: Normal Abdomen: Abnormal Genitourinary Exam: Normal Extremities: Normal DTRs: Normal Pelvic Type: Adequate Physical Exam Comments: LUngs: CTAB Heart: S1S2, RRR Abd: Mild RUQ pain on palpation BLE: reflexes 1/4 and no clonus Vital Signs: Reviewed Details Vital Signs: Severe range blood pressures. Treated with Labetolol 20mg IV x1 and Labetolol 300mg BID PO started. Patient is already on Procardia. Last dose 9am today (30mg) . Hydralazine on back order and not available. Continued severe range blood pressures in triage and pulse was 58-61 bpm so Clonidine 0.1 mg given PO x1 . Mag sulfate 4 gm bolus and then continued IV drip of 2 gms /hr initiated VAGINAL EXAM Dilatation: 0 Effacement: 0 Station: -3 MEMBRANES Membranes: Intact FETUS A EGA: 24.2 Monitoring: External US FHR- Baseline: 140 Variability: Moderate 6-25bpm Accelerations: 10X10 Decelerations: None FHR Category: Category I Presentation: Vertex Admit Comment: 39 yo at 24.2 wks EGA with severe preeclampsia diagnosed by severe range blood pressures (>160 mm Hg sytolic) and 24 hour urine resulting today at 545 -Admit to LDR for blood pressure management and transport to higher level care NICU -VS Q 15 minutes until stable -B/Ps severe. Takes Nifedipine 30mg BID at home and last dose 0900 today. Takes Indural 20mg TID for headache prophylaxis since last week (Neurology prescribed) Treated here with Labetolol 20mg IV x1 and then Indural canceled and Labetolol 300mg BID PO started. First dose this am. Still with severe range blood pressures and pulse now upper 50s. National shortage of hydralazine and none in our hospital. Already on aforementioned Nifedipine. Wll give Clonidine 0.1 mg PO now. Begin Magnesium sulfate 4 gm bolus and follow with magnesium sulfate 2 gms /hr IV drip. -Labs on Admission today: 24 urine 545 up from baseline 24 hour urine of 136 on 07/24/2020 Serology today: Uric acid 4.0, LDH 309, AST/ALT 39/33, Creatinine 0.73 and platelets 130 Repeat labs Q 6 hours -Betamethasone 12 mg IM given 1347 today -History of GBS positive urine on 07/10/20 -Closed cervix/thick. BSUS showed vertex -History of 4 prior at term (38-41 weeks) None complicated by preeclampsia or hypertension. Denies delivery complications or other medical complications in prior pregnancies. -Seizure precautions, SCDs and TEDs -Due to severe preeclampsia at 24.2 wks EGA will transfer to [facility] for higher level NICU INFORMED CONSENT Informed Consent Obtained: Risks, Benefits and Alternatives Discussed Informed Consent Obtained- Other: Transport Signature: with User ID: Shaka : with User ID: [email or web address]
[2020-08-09] MEDS ORDERED: NIFEDIPINE 10 MG CAPSULE PO ONE (17:05)
[2020-08-09] MEDS ORDERED: NIFEDIPINE 10 MG CAPSULE ONE (17:05)
[2020-08-09] MEDS ORDERED: NIFEDIPINE 30 MG TAB.ER.24 PO ONE ×2 (18:17→18:47)
[2020-08-10] MEDS ORDERED: BETAMET ACET/BETAMET NA INJ 6 MG/1 ML IM SCH (10:00)
== END 2020-08-09 19:22 | disposition short-term general hospital (02) ==
LOC: LC 09:23
PROVIDERS: ATTEND Obstetrics & Gynecology
DX: O14.12 Severe pre-eclampsia, second trimester (principal); O09.522 Supervision of elderly multigravida, second trimester; R51.9 Headache, unspecified; Z3A.24 24 weeks gestation of pregnancy
CPT/HCPCS: 59899; 36415; 83615; 84156; 84550; 85025; 87070; 80053; J3475 ×2; J3490 ×2; J0702; 94760; 96372